=== PATIENT | male | born 1995 | race African-American/Black ===

== ENCOUNTER 2021-04-13 15:53 | Emergency (ER) | payer BC, SELFPAY ==
--- NOTE | 2021-04-13 19:13 | ER ---
Nurse's Notes [facility] Name: Jose Brody Age: 25 yrs Sex: Male : 1995 Arrival Date: 04/13/2021 Time: 16:00 Bed 5 Private MD: Diagnosis: Unspecified sexually transmitted disease Presentation: 04/13 16:39 Chief complaint: Patient states: itching and white-yellowish discharge to penile area ss that began yesterday. Pt states, "I'm pretty sure I have something." Pt is requesting STD tests. Coronavirus screen: Client denies travel out of the [place] in the last 14 days. Ebola Screen: Patient denies exposure to infectious person. Patient denies travel to an Ebola-affected area in the 21 days before illness onset. Initial Sepsis Screen: Does the patient meet any 2 criteria? No. Patient's initial sepsis screen is negative. Does the patient have a suspected source of infection? No. Patient's initial sepsis screen is negative. Risk Assessment: Do you want to hurt yourself or someone else? Patient reports no desire to harm self or others. Onset of symptoms was April 12, 2021. 16:39 Method Of Arrival: Ambulatory ss 16:39 Acuity: NADIRA 4 ss Historical: - Allergies: 16:41 No Known Allergies; ss - Home Meds: 16:41 None [Active]; ss - PMHx: 16:41 None; ss - PSHx: 16:41 None; ss - Immunization history:: Client reports receiving the 1st dose of the Covid vaccine. - Social history:: Smoking status: Patient denies any tobacco usage or history of. Patient uses street drugs, marijuana. Screenin:09 Abuse screen: Denies threats or abuse. Denies injuries from another. Nutritional jh5 screening: No deficits noted. Tuberculosis screening: No symptoms or risk factors identified. Fall Risk None identified. Assessment: 18:28 General: Appears in no apparent distress. slender, Behavior is calm, cooperative. Pain: jh5 Denies pain. Neuro: No deficits noted. Level of Consciousness is awake, alert, obeys commands, Oriented to person, place, time, situation, Appropriate for age Speech is normal. Cardiovascular: No deficits noted. Capillary refill < 3 seconds Patient's skin is warm and dry. : Reports discharge, from penis that is white, yellow. Vital Signs: 16:39 BP 119 / 76; Pulse 67; Resp 14; Temp 98.6(TE); Pulse Ox 99% on R/A; Weight 72.57 kg; Height 5 ft. 10 in. (177.80 cm); Pain 1/10; 18:29 BP 122 / 74; Pulse 68; Resp 16; Pulse Ox 99% ; jh5 16:39 Body Mass Index 22.96 (72.57 kg, 177.80 cm) ED Course: 16:00 Patient arrived in ED. ds1 16:41 Triage completed. 16:41 Arm band placed on right wrist. 18:09 Una Gauthier, RN is Primary Nurse. 5 18:10 Patient has correct armband on for positive identification. Bed in low position. Call [facility] light in reach. Side rails up X 1. 18:42 Rodrick Leblanc PA is PHCP. cp 18:43 Brian Landry MD is Attending Physician. cp 19:12 Ritchie Barker MD is Referral Physician. cp 19:14 GC (GONORR/CHLAMYDIA) Probe Sent. df1 19:16 Patient did not have IV access during this emergency room visit. df1 19:17 No provider procedures requiring assistance completed. df1 Administered Medications: 19:26 Drug: Rocephin (cefTRIAXone) 250 mg Route: IM; Site: left ventrogluteal; dc2 19:33 Follow up: Response: No adverse reaction dc2 19:26 Drug: Zithromax (azithromycin) 1 grams Route: PO; dc2 19:33 Follow up: Response: No adverse reaction dc2 Outcome: 19:13 Discharge ordered by MD. cp 19:32 Discharged to home dc2 19:32 Condition: stable 19:32 Discharge instructions given to patient, Instructed on discharge instructions, follow up and referral plans. Demonstrated understanding of instructions, follow-up care. 19:32 Patient left the ED. dc2 Signatures: Marian Hill ds1 Ivette Grove RN RN Rodrick Leblanc PA PA cp Terrie Salomon df1 Raya Powell RN RN dc2 Una Gauthier RN RN jh5
--- NOTE | 2021-04-13 19:13 | EDPHYS ---
Physician Documentation [facility] Name: Jose Brody Age: 25 yrs Sex: Male : 1995 Arrival Date: 04/13/2021 Time: 16:00 Bed 5 Private MD: ED Physician Brian Landry HPI: 04/13 19:10 This 25 yrs old Black Male presents to ER via Ambulatory with complaints of Penile Pain.cp 19:10 The patient presents with penile discharge, dysuria. Onset: The symptoms/episode cp began/occurred yesterday. Associated signs and symptoms: Pertinent positives: dysuria, penile discharge, Pertinent negatives: constipation, fever, vomiting. Severity of symptoms: in the emergency department the symptoms are unchanged, despite home interventions. 19:10 Patient reports having unprotected intercourse with multiple partners and a history of cp having a sexually transmitted infection in the past. Historical: - Allergies: 16:41 No Known Allergies; ss - Home Meds: 16:41 None [Active]; ss - PMHx: 16:41 None; ss - PSHx: 16:41 None; ss - Immunization history:: Client reports receiving the 1st dose of the Covid vaccine. - Social history:: Smoking status: Patient denies any tobacco usage or history of. Patient uses street drugs, marijuana. ROS: 19:11 Constitutional: Negative for fever. cp 19:11 Abdomen/GI: Negative for vomiting, diarrhea, constipation. 19:11 : Positive for burning with urination, penile discharge, Negative for testicular pain 19:11 Skin: Negative for rash. 19:11 All other systems are negative. Exam: 19:12 Constitutional: The patient appears in no acute distress, alert, awake, comfortable, cp well developed, well nourished. 19:12 Cardiovascular: Rate: normal. cp 19:12 Respiratory: the patient does not display signs of respiratory distress, Respirations: normal. 19:12 Abdomen/GI: Inspection: abdomen appears normal, Palpation: abdomen is soft and non-tender, in all quadrants. 19:12 : Male external genitalia: Circumcision noted. Sexual behavior: the patient is sexually active, and reports multiple partners, admits to having unprotected intercourse. Vital Signs: 16:39 BP 119 / 76; Pulse 67; Resp 14; Temp 98.6(TE); Pulse Ox 99% on R/A; Weight 72.57 kg; ss Height 5 ft. 10 in. (177.80 cm); Pain 06/13; 18:29 BP 122 / 74; Pulse 68; Resp 16; Pulse Ox 99% ; jh5 16:39 Body Mass Index 22.96 (72.57 kg, 177.80 cm) ss MDM: 18:44 Patient medically screened. cp 19:10 Differential diagnosis: appendicitis, UTI, urinary retention, prostatitis, urethritis, cp sexually transmitted infection. 19:13 Data reviewed: vital signs, nurses notes. cp 19:13 Counseling: I had a detailed discussion with the patient and/or guardian regarding: the cp historical points, exam findings, and any diagnostic results supporting the discharge/admit diagnosis, to return to the emergency department if symptoms worsen or persist or if there are any questions or concerns that arise at home. 04/13 18:44 Order name: GC (GONORR/CHLAMYDIA) Probe cp Administered Medications: 19:26 Drug: Rocephin (cefTRIAXone) 250 mg Route: IM; Site: left ventrogluteal; dc2 19:33 Follow up: Response: No adverse reaction dc2 19:26 Drug: Zithromax (azithromycin) 1 grams Route: PO; dc2 19:33 Follow up: Response: No adverse reaction dc2 Disposition: 19:20 Chart complete. cp Disposition Summary: 04/13/21 19:13 Discharge Ordered Location: Home cp Problem: new cp Symptoms: have improved cp Condition: Stable cp Diagnosis - Unspecified sexually transmitted disease cp Followup: cp - With: Ritchie Barker MD - When: 2 - 3 days - Reason: Worsening of condition Discharge Instructions: - Discharge Summary Sheet cp - Chlamydia, Male cp - Gonorrhea cp Forms: - Medication Reconciliation Form cp - Thank You Letter cp - Antibiotic Education cp - Prescription Opioid Use cp Addendum: 04/18/2021 05:33 PA/IMPROVEMENT COORDINATOR's history reviewed, patient interviewed, and examined. I agree with assessment m a2 and care plan and confirm the diagnosis (es) above. Signatures: Dispatcher [employer] EDIvette Willett RN RN ss Rodrick Leblanc PA PA cp Brian Landry MD MD ma2 Sheryr, YARELIS Dos Santos RN dc2 Corrections: (The following items were deleted from the chart) 04/14 01:53 01:52 : Positive for penile discharge, cp cp :54 04/13 19:15 : Positive for burning with urination, penile discharge, Negative for cp testicular pain cp 04/14 01:54 04/13 19:15 Constitutional: Negative for fever, cp cp 04/14 01:54 04/13 19:15 Abdomen/GI: Negative for vomiting, diarrhea, constipation, cp cp 04/14 01:54 04/13 19:15 Skin: Negative for rash, cp cp 04/14 01:54 04/13 19:15 All other systems are negative, cp cp
[2021-04-13] MEDS ORDERED: AZITHROMYCIN 250 MG TAB ONE (19:21)
[2021-04-13] MEDS ORDERED: CEFTRIAXONE 250 MG/VIAL ONE (19:21)
[2021-04-13 19:37] VITALS: TEMP 98.6; O2SAT 99
[2021-04-13 19:39] VITALS: BP 122/74
[2021-04-18 01:24] LABS: C.trachomatis RNA,TMA Detected (Not Detected)
== END 2021-04-13 19:32 | disposition home or self-care (01) ==
LOC: ER 15:53
DX: A64 Unspecified sexually transmitted disease (principal); F12.90 Cannabis use, unspecified, uncomplicated
CPT/HCPCS: 87490; 87590; 96372; 99283; J0696

== ENCOUNTER 2021-06-13 12:40 | Emergency (ER) | payer SELFPAY ==
[2021-06-13 13:00] LABS: Urine Blood Negative (Negative); Urine Glucose Negative (Negative); Urine Protein Trace (Negative); Urine Specific Gravity >=1.030 (1.005-1.030); Urine pH 5.5 (5.0-7.0)
[2021-06-13] MEDS ORDERED: AZITHROMYCIN 250 MG TAB ONE (13:06)
[2021-06-13] MEDS ORDERED: CEFTRIAXONE 500 MG/VIAL ONE (13:06)
[2021-06-13 13:21] LABS: Urine Bacteria <20 /HPF (NONE SEEN); Urine Mucus LIGHT /HPF (NONE SEEN); Urine RBC <5 /HPF (NONE SEEN)
--- NOTE | 2021-06-13 14:14 | ER ---
Nurse's Notes [facility] Name: Jose Brody Age: 25 yrs Sex: Male : 1995 Arrival Date: 06/13/2021 Time: 12:41 Bed 11 Private MD: Diagnosis: Unspecified sexually transmitted disease Presentation: 06/13 12:47 Chief complaint: Patient states: Burning with urination for 3 days. No fever. ll1 Coronavirus screen: Vaccine status: Patient reports receiving the 1st dose of the Covid vaccine. Client denies travel out of the [place] in the last 14 days. At this time, the client does not indicate any symptoms associated with coronavirus-19. Ebola Screen: Patient denies travel to an Ebola-affected area in the 21 days before illness onset. Initial Sepsis Screen: Does the patient meet any 2 criteria? No. Patient's initial sepsis screen is negative. Does the patient have a suspected source of infection? Yes: Dysuria/Frequency/Urgency/UTI. Risk Assessment: Do you want to hurt yourself or someone else? Patient reports no desire to harm self or others. Onset of symptoms was June 11, 2021. 12:47 Method Of Arrival: Ambulatory ll1 12:47 Acuity: NADIRA 4 ll1 Historical: - Allergies: 12:50 Banana; ll1 - PMHx: 12:50 None; ll1 - PSHx: 12:50 Appendectomy; laser eye SX; ll1 - Immunization history:: Client reports receiving the 1st dose of the Covid vaccine, Flu vaccine is not up to date. - Social history:: Smoking status: Reported history of juuling and/or vaping. Screenin:47 Abuse screen: Denies threats or abuse. Nutritional screening: No deficits noted. ll3 Tuberculosis screening: No symptoms or risk factors identified. Fall Risk None identified. Assessment: 12:47 General: See triage. ll3 12:47 Pain: Complains of pain in urination. GI: Bowel sounds present X 4 quads. Abd is soft ll3 and non tender X 4 quads. : Reports burning with urination, urgency, urinary frequency. 13:45 Reassessment: Patient appears in no apparent distress at this time. No changes from ll3 previously documented assessment. Patient and/or family updated on plan of care and expected duration. Pain level reassessed. Patient is alert, oriented x 3, equal unlabored respirations, skin warm/dry/pink. Vital Signs: 12:47 BP 136 / 94; Pulse 93; Resp 16; Temp 99.0; Pulse Ox 100% ; Weight 73.48 kg; Height 5 ll1 ft. 10 in. (177.80 cm); Pain 2/10; 13:45 BP 132 / 96; Pulse 86; Resp 15; Pulse Ox 100% on R/A; ll3 12:47 Body Mass Index 23.24 (73.48 kg, 177.80 cm) ll1 ED Course: 12:41 Patient arrived in ED. ds1 12:47 Patient has correct armband on for positive identification. Bed in low position. Call ll3 light in reach. Side rails up X 1. 12:47 No provider procedures requiring assistance completed. ll3 12:49 Triage completed. ll1 12:50 Arm band placed on. ll1 12:51 Nell Ferrera FNP-C is [facility]. kb 12:51 Johnny Salvador MD is Attending Physician. kb 13:01 Urine Microscopic Only Sent. ll3 13:55 Ashli Irvin RN is Primary Nurse. ll3 Administered Medications: 13:17 Drug: Zithromax (azithromycin) 1 grams Route: PO; ll3 13:17 Drug: Rocephin (cefTRIAXone) 500 mg Route: IM; Site: right gluteus; ll3 14:04 Follow up: Response: No adverse reaction ll3 14:04 Follow up: Response: No adverse reaction ll3 Outcome: 14:14 Discharge ordered by MD. kb 14:21 Patient left the ED. [facility] Signatures: Nell Ferrera FNP-C FNP-Marian Kaye ds1 Clay Hassan RN RN ll1 Una Gauthier RN RN 5 Ashli Irvin, YARELIS SANTOYO ll3 Corrections: (The following items were deleted from the chart) 12:50 12:50 Allergies: No Known Allergies; ll1 ll1 12:50 12:50 PSHx: None; ll1 ll1 12:50 12:50 Social history: Smoking status: Patient reports the use of cigarette tobacco 1 products, smokes one-half pack cigarettes per day, Reported history of juuling and/or vaping. ll1
--- NOTE | 2021-06-13 14:14 | EDPHYS ---
Physician Documentation [facility] Name: Jose Brody Age: 25 yrs Sex: Male : 1995 Arrival Date: 06/13/2021 Time: 12:41 Bed 11 Private MD: ED Physician Johnny Salvador HPI: 06/13 15:10 This 25 yrs old Black Male presents to ER via Ambulatory with complaints of Pain/Burn kb With Urination, Abdominal Pain. 15:10 The patient has not experienced similar symptoms in the past. The patient has not kb recently seen a physician. 15:10 The patient presents with symptoms include dysuria, white/kirby discharge. Onset: The kb symptoms/episode began/occurred 3 day(s) ago. Modifying factors: The symptoms are alleviated by nothing, the symptoms are aggravated by urinating. Associated signs and symptoms: The patient has no apparent associated signs or symptoms. Severity of symptoms: At their worst the symptoms were mild, in the emergency department the symptoms are unchanged. Historical: - Allergies: 12:50 Banana; ll1 - PMHx: 12:50 None; ll1 - PSHx: 12:50 Appendectomy; laser eye SX; ll1 - Immunization history:: Client reports receiving the 1st dose of the Covid vaccine, Flu vaccine is not up to date. - Social history:: Smoking status: Reported history of juuling and/or vaping. ROS: 15:09 Constitutional: Negative for fever, chills, and weight loss. kb 15:09 : Positive for burning with urination, penile discharge. 15:09 All other systems are negative. Exam: 15:09 Constitutional: This is a well developed, well nourished patient who is awake, alert, kb and in no acute distress. Head/Face: Normocephalic, atraumatic. ENT: Moist Mucous membranes Respiratory: Respirations even and unlabored. No increased work of breathing. Talking in full sentences Abdomen/GI: Soft, non-tender. No distention Skin: Warm, dry with normal turgor. Normal color. MS/ Extremity: Pulses equal, no cyanosis. Neurovascular intact. Full, normal range of motion. Neuro: Awake and alert, GCS 15, oriented to person, place, time, and situation. Moves all extremities. Normal gait. Psych: Awake, alert, with orientation to person, place and time. Behavior, mood, and affect are within normal limits. Vital Signs: 12:47 BP 136 / 94; Pulse 93; Resp 16; Temp 99.0; Pulse Ox 100% ; Weight 73.48 kg; Height 5 ll1 ft. 10 in. (177.80 cm); Pain 2/10; 13:45 BP 132 / 96; Pulse 86; Resp 15; Pulse Ox 100% on R/A; ll3 12:47 Body Mass Index 23.24 (73.48 kg, 177.80 cm) ll1 MDM: 12:51 Patient medically screened. kb 15:08 Data reviewed: vital signs, nurses notes. Data interpreted: Pulse oximetry: on room air kb is 100 %. Interpretation: normal. Counseling: I had a detailed discussion with the patient and/or guardian regarding: the historical points, exam findings, and any diagnostic results supporting the discharge/admit diagnosis, lab results, the need for outpatient follow up, a family practitioner, to return to the emergency department if symptoms worsen or persist or if there are any questions or concerns that arise at home. 06/13 12:51 Order name: Urine Microscopic Only 06/13 12:52 Order name: Urine Microscopic Only; Complete Time: 13:22 [facility] 06/13 12:59 Order name: Urine Dipstick-Ancillary; Complete Time: 13:07 [facility] 06/13 13:23 Order name: Urine Culture [facility] 06/13 12:51 Order name: Urine Dipstick-Ancillary (obtain specimen); Complete Time: 13:01 kb Administered Medications: 13:17 Drug: Zithromax (azithromycin) 1 grams Route: PO; ll3 13:17 Drug: Rocephin (cefTRIAXone) 500 mg Route: IM; Site: right gluteus; ll3 14:04 Follow up: Response: No adverse reaction ll3 14:04 Follow up: Response: No adverse reaction ll3 Disposition: 15:27 Co-signature as Attending Physician, Johnny Salvador MD I agree with the assessment and rn plan of care. Attestation: The patient's history, exam findings, diagnostics, and a summary of any interventions or procedures was reviewed in detail with Nell BERNAL. Disposition Summary: 06/13/21 14:14 Discharge Ordered Location: Home kb Condition: Stable kb Diagnosis - Unspecified sexually transmitted disease kb Followup: kb - With: Emergency Department - When: As needed - Reason: Worsening of condition Followup: kb - With: Private Physician - When: 2 - 3 days - Reason: Recheck today's complaints, Continuance of care, Re-evaluation by your physician Discharge Instructions: - Discharge Summary Sheet kb - Preventing Sexually Transmitted Infections, Adult kb Forms: - Medication Reconciliation Form kb - Thank You Letter kb - Antibiotic Education kb - Prescription Opioid Use kb Signatures: Dispatcher [employer] EDNell Cobos FNP-C FNP-Johnny Gomez MD MD rn Clay Hassan RN RN ll1 Ashli Irvin RN RN ll3 Corrections: (The following items were deleted from the chart) 12:50 12:50 Allergies: No Known Allergies; ll1 ll1 12:50 12:50 PSHx: None; ll1 ll1 12:50 12:50 Social history: Smoking status: Patient reports the use of cigarette tobacco ll1 products, smokes one-half pack cigarettes per day, Reported history of juuling and/or vaping. ll1
[2021-06-13 15:09] VITALS: TEMP 99; O2SAT 100
[2021-06-13 15:10] VITALS: BP 132/96
== END 2021-06-13 14:21 | disposition home or self-care (01) ==
LOC: ER 12:40
DX: A64 Unspecified sexually transmitted disease (principal)
CPT/HCPCS: 81003; 81015; 87086; 87088; 96372; 99283; J0696

== ENCOUNTER 2021-06-25 12:21 | Emergency (ER) | payer SELFPAY ==
[2021-06-25 12:53] LABS: Urine Blood Negative (Negative); Urine Glucose Negative (Negative); Urine Protein Negative (Negative)
[2021-06-25 13:52] LABS: Urine Bacteria <20 /HPF (NONE SEEN); Urine RBC <5 /HPF (NONE SEEN)
--- NOTE | 2021-06-25 14:22 | RAD REPORT ---
EXAM DESCRIPTION: CT - Abdomen Pelvis W Contrast - 06/25/2021 2:09 pm CLINICAL HISTORY: Abdominal pain COMPARISON: none. TECHNIQUE: Computed axial tomography of the abdomen pelvis was obtained. 100 cc Isovue-300 was admin istered intravenously. Oral contrast was not requested which limits evaluation of bowel. All CT scans are performed using dose optimization technique as appropriate and may include automated exposure control or mA/KV adjustment according to patient size. FINDINGS: The liver, spleen, pancreas, adrenal and kidneys appear unremarkable. There is no evidence of diverticulitis. Appendectomy. IMPRESSION: No acute abnormality is displayed.
--- NOTE | 2021-06-25 14:40 | EDPHYS ---
Physician Documentation [facility] Name: Jose Brody Age: 25 yrs Sex: Male : 1995 Arrival Date: 06/25/2021 Time: 12:23 Bed 25 Private MD: ED Physician Johnny Salvador HPI: 06/25 12:32 This 25 yrs old Black Male presents to ER via Ambulatory with complaints of Urinary jmm Frequency, Penile Discharge, Flank Pain, Pelvic Pain. 12:32 The patient presents with urinary symptoms, dysuria. Onset: The symptoms/episode jmm began/occurred gradually, 12 day(s) ago. Modifying factors: The symptoms are alleviated by nothing, the symptoms are aggravated by nothing. Associated signs and symptoms: Pertinent negatives: fever. This is a 25 year old male with no chronic medical conditions that presents to the ED with complaints of lower abdominal pain, painful urination and some penile discharge. Patient does admit to unprotected intercourse but states he was treated in a previous ED visit. . Historical: - Allergies: 12:29 Banana; ld1 - Home Meds: 12:29 None [Active]; ld1 - PMHx: 12:29 None; ld1 - PSHx: 12:29 Appendectomy; laser eye SX; ld1 - Immunization history:: Adult Immunizations up to date, Client reports receiving the 2nd dose of the Covid vaccine. - Social history:: Smoking status: Reported history of juuling and/or vaping. Patient uses alcohol, occasionally. street drugs, marijuana. ROS: 12:32 Constitutional: Negative for fever, chills, and weight loss, Cardiovascular: Negative jmm for chest pain, palpitations, and edema, Respiratory: Negative for shortness of breath, cough, wheezing, and pleuritic chest pain. 12:32 Abdomen/GI: Positive for abdominal pain. 12:32 : Positive for urinary symptoms, penile discharge. 12:32 All other systems are negative. Exam: 12:32 Constitutional: This is a well developed, well nourished patient who is awake, alert, jmm and in no acute distress. Head/Face: atraumatic. Eyes: EOMI, no conjunctival erythema appreciated ENT: Moist Mucus Membranes Neck: Trachea midline, Supple Chest/axilla: Normal chest wall appearance and motion. Cardiovascular: Regular rate and rhythm. No edema appreciated Respiratory: Normal respirations, no respiratory distress appreciated 12:32 Back: Normal ROM Skin: General appearance color normal MS/ Extremity: Moves all extremities, no obvious deformities appreciated, no edema noted to the lower extremities Neuro: Awake and alert, normal gait Psych: Behavior is normal, Mood is normal, Patient is cooperative and pleasant 12:32 Abdomen/GI: Inspection: abdomen appears normal, Bowel sounds: normal, Palpation: soft, mild abdominal tenderness, in the right lower quadrant and left lower quadrant. Vital Signs: 12:28 BP 147 / 74; Pulse 88; Resp 18; Temp 98.5(TE); Pulse Ox 100% on R/A; Weight 73.48 kg; ld1 Height 5 ft. 10 in. (177.80 cm); Pain 3/10; 14:49 BP 128 / 63; Pulse 86; Resp 16; Pulse Ox 100% on R/A; ic1 12:28 Body Mass Index 23.24 (73.48 kg, 177.80 cm) ld1 MDM: 13:13 Patient medically screened. nas 14:37 Data reviewed: vital signs, nurses notes. Counseling: I had a detailed discussion with nas the patient and/or guardian regarding: the historical points, exam findings, and any diagnostic results supporting the discharge/admit diagnosis, radiology results, the need for outpatient follow up, to return to the emergency department if symptoms worsen or persist or if there are any questions or concerns that arise at home. ED course: Patient is alert and non toxic in appearance in the ED. CT negative. Will treat patient with abx for penile discharge. Advised to follow up with urologist. Patient understood and agrees with the plan of care. . 06/25 12:32 Order name: Urine Microscopic Only; Complete Time: 13:53 [facility] 06/25 12:32 Order name: Urine Culture [facility] 06/25 12:32 Order name: Urine Dipstick-Ancillary (obtain specimen); Complete Time: 12:54 [facility] 06/25 12:52 Order name: Urine Dipstick-Ancillary; Complete Time: 13:13 [facility] 06/25 13:14 Order name: CT Abd/Pelvis - IV Contrast Only; Complete Time: 14:26 [facility] 06/25 13:14 Order name: Saline Lock; Complete Time: 13:55 [facility] Administered Medications: No medications were administered Disposition: 15:27 Co-signature as Attending Physician, Johnny Salvador MD I agree with the assessment and rn plan of care. Attestation: The patient's history, exam findings, diagnostics, and a summary of any interventions or procedures was reviewed in detail with Jamir MOORE. Disposition Summary: 06/25/21 14:39 Discharge Ordered Location: Home [facility] Condition: Stable [facility] Diagnosis - Dysuria jmm - Lower abdominal pain, unspecified jmm Followup: [facility] - With: Ritchie Barker MD - When: 2 - 3 days - Reason: Recheck today's complaints, Continuance of care, Re-evaluation by your physician Discharge Instructions: - Discharge Summary Sheet jm - Abdominal Pain, Adult jmm - Dysuria [facility] Forms: - Medication Reconciliation Form [facility] - Thank You Letter [facility] - Antibiotic Education [facility] - Prescription Opioid Use [facility] Prescriptions: - Doxycycline Hyclate 100 mg Oral Tablet - take 1 tablet by ORAL route every 12 hours for 14 days; 28 tablet; Refills: 0, [facility] Product Selection Permitted Signatures: Dispatcher [employer] EDJamir Manriquez PA PA m Johnny Salvador MD MD rn Alana Merino RN RN ld1
--- NOTE | 2021-06-25 14:40 | ER ---
Nurse's Notes [facility] Name: Jose Brody Age: 25 yrs Sex: Male : 1995 Arrival Date: 06/25/2021 Time: 12:23 Bed 25 Private MD: Diagnosis: Dysuria;Lower abdominal pain, unspecified Presentation: 06/25 12:28 Chief complaint: Patient states: I have been having pain in my lower abdomen X 2 weeks. ld1 Urinary frequency, discharge - kirby color. Pt reporting SAMSON kidney pain. Coronavirus screen: At this time, the client does not indicate any symptoms associated with coronavirus-19. Ebola Screen: No symptoms or risks identified at this time. Initial Sepsis Screen: Does the patient meet any 2 criteria? No. Patient's initial sepsis screen is negative. Does the patient have a suspected source of infection? No. Patient's initial sepsis screen is negative. Risk Assessment: Do you want to hurt yourself or someone else? Patient reports no desire to harm self or others. Onset of symptoms was June 25, 2021 at 12:29. 12:28 Method Of Arrival: Ambulatory ld1 12:28 Acuity: NADIRA 4 ld1 Triage Assessment: 12:29 General: Appears in no apparent distress. comfortable, Behavior is calm, cooperative, ld1 appropriate for age. Pain: Complains of pain in right lower quadrant and left lower quadrant Pain does not radiate. Pain currently is 3 out of 10 on a pain scale. Quality of pain is described as throbbing, Pain began gradually, Is continuous. Neuro: Level of Consciousness is awake, alert, obeys commands, Oriented to person, place, time, situation. Respiratory: Airway is patent Respiratory effort is even, unlabored. GI: Reports lower abdominal pain. : Reports discharge, kirby urinary frequency. Historical: - Allergies: 12: Banana; ld1 - Home Meds: 12: None [Active]; ld1 - PMHx: 12: None; ld1 - PSHx: 12: Appendectomy; laser eye SX; ld1 - Immunization history:: Adult Immunizations up to date, Client reports receiving the 2nd dose of the Covid vaccine. - Social history:: Smoking status: Reported history of juuling and/or vaping. Patient uses alcohol, occasionally. street drugs, marijuana. Screenin:53 Abuse screen: Denies threats or abuse. Denies injuries from another. Nutritional ic1 screening: No deficits noted. Tuberculosis screening: No symptoms or risk factors identified. Fall Risk None identified. Assessment: 12:53 General: Appears in no apparent distress. Behavior is calm, cooperative. Pain: ic1 Complains of pain in abdomen. Neuro: No deficits noted. Cardiovascular: No deficits noted. Respiratory: No deficits noted. GI: No deficits noted. : Reports discharge, green, Denies burning with urination. EENT: No deficits noted. Derm: No deficits noted. Musculoskeletal: No deficits noted. 14:11 Reassessment: Pt transported to CT via wheelchair. In NAD. ic1 Vital Signs: 12:28 BP 147 / 74; Pulse 88; Resp 18; Temp 98.5(TE); Pulse Ox 100% on R/A; Weight 73.48 kg; ld1 Height 5 ft. 10 in. (177.80 cm); Pain 3/10; 14:49 BP 128 / 63; Pulse 86; Resp 16; Pulse Ox 100% on R/A; ic1 12:28 Body Mass Index 23.24 (73.48 kg, 177.80 cm) ld1 ED Course: 12:23 Patient arrived in ED. am2 12:27 Jamir Dos Santos PA is PHCP. [facility] 12:27 Johnny Salvador MD is Attending Physician. jm 12:29 Triage completed. ld1 12:29 Arm band placed on left wrist. ld1 12:38 Yuliana Cervantes, YARELIS is Primary Nurse. ic1 12:53 Patient has correct armband on for positive identification. Bed in low position. Call ic1 light in reach. 13:07 Urine Culture Sent. ic1 13:07 Urine Microscopic Only Sent. ic1 13:55 Inserted saline lock: 20 gauge in right antecubital area, using aseptic technique. ic1 14:09 CT Abd/Pelvis - IV Contrast Only In Process Unspecified. EDMS 14:39 Ritchie Barker MD is Referral Physician. jmm 14:49 IV discontinued, intact, bleeding controlled, No redness/swelling at site. Pressure ic1 dressing applied. Administered Medications: No medications were administered Outcome: 14:39 Discharge ordered by . jmm 14:42 Discharged to home ambulatory. ic1 14:42 Condition: stable 14:42 Discharge instructions given to patient, Instructed on discharge instructions, follow up and referral plans. Demonstrated understanding of instructions, follow-up care, medications, Prescriptions given X 1. 14:50 Patient left the ED. ic1 Signatures: Dispatcher [employer] EDMS Jamir Dos Santos PA PA jmm Moreno, Amanda am2 Dibbern, Lauren, RN RN ld1 Yuliana Cervantes RN RN ic1
[2021-06-25 14:58] VITALS: TEMP 98.5; O2SAT 100
[2021-06-25 15:00] VITALS: BP 128/63
== END 2021-06-25 14:50 | disposition home or self-care (01) ==
LOC: ER 12:21
DX: R10.30 Lower abdominal pain, unspecified (principal); Z91.018 Allergy to other foods
CPT/HCPCS: 74177; 81003; 81015; 82565; 87086; 87088; 99284; Q9967